=== PATIENT | male | born 1935 | race Caucasian/White ===

== ENCOUNTER 2020-01-19 12:52 | Emergency (ER) | payer MEDICARE, BC ==
[~2020-01-19] VITALS: Ht 160 cm; Wt 75.0 kg
[2020-01-19] MEDS ORDERED: PANT40TA25 PO (13:11)
[2020-01-19] MEDS ORDERED: BRIN8DRO OP (13:11)
[2020-01-19] MEDS ORDERED: ASPI-728 PO (13:11)
[2020-01-19] MEDS ORDERED: ATOR40TA28 PO (13:11)
[2020-01-19] MEDS ORDERED: FLUT1BLS3 IN (13:11)
[2020-01-19] MEDS ORDERED: MODA200T48 PO (13:11)
[2020-01-19] MEDS ORDERED: ALBU8HFA IN (13:11)
[2020-01-19] MEDS ORDERED: CLOP75TA3 PO (13:11)
[2020-01-19] MEDS ORDERED: CARV6 PO (13:11)
[2020-01-19] MEDS ORDERED: TAMS-13 PO (13:11)
[2020-01-19] MEDS ORDERED: AMLO10TA7 PO (13:11)
[2020-01-19] MEDS ORDERED: LOSA-88 PO (13:11)
[2020-01-19] MEDS ORDERED: FURO40I IM (13:11)
[2020-01-19] MEDS ORDERED: BACITRACIN 0.9 GM PACKET OINTMENT TP ONE (13:30)
[2020-01-19 13:42] VITALS: BP 129/74
== END 2020-01-19 14:42 | disposition home or self-care (01) ==
LOC: EMS 12:58
DX: S61.511A Laceration without foreign body of right wrist, initial encounter (principal); I11.0 Hypertensive heart disease with heart failure; I50.9 Heart failure, unspecified; J44.9 Chronic obstructive pulmonary disease, unspecified; Z87.891 Personal history of nicotine dependence; Z79.899 Other long term (current) drug therapy; Z98.890 Other specified postprocedural states; Z79.82 Long term (current) use of aspirin; W54.0XXA Bitten by dog, initial encounter; Y93.89 Activity, other specified; Y92.89 Other specified places as the place of occurrence of the external cause; Y99.8 Other external cause status